=== PATIENT | female | born 1980 | race Caucasian/White ===

== ENCOUNTER 2017-11-15 12:25 | Emergency (ER) | payer OTHER, SELFPAY ==
--- NOTE | 2017-11-15 12:28 | ED_ITS ---
HPI - General Adult <IGNACIO Harvey - Last Filed: 11/15/17 21:48> General Chief complaint: Hypertension Stated complaint: elevated blood pressure Time Seen by Provider: 11/15/17 12:26 Source: patient Mode of arrival: ambulatory Limitations: no limitations History of Present Illness HPI narrative: 37-year-old female here for complaint of for the last several days. She reports that the pain starts at the base of the skull and wraps forward to the top of the scalp. She states that she has a history of migraine headaches but but she states that this is different. She denies any head trauma. She denies any trauma to the neck. She also reports she has had elevated blood pressure over the past few days as well. She denies having a history of hypertension. No chest pain or shortness of breath. She states that her blood pressure has been running right around 140/90. No fevers no chills. No nausea or vomiting. She denies any other concerns or complaints. She denies any stressors relievers of the headache. Related Data Home Medications Medication Instructions Recorded Confirmed Fish Oil 1 cap PO DIRECTED 11/15/17 11/15/17 Previous Rx's Medication Instructions Recorded cyclobenzaprine 10 mg PO TID PRN #15 tab 11/15/17 Allergies Allergy/AdvReac Type Severity Reaction Status Date / Time hydromorphone [From Dilaudid] Allergy Verified 11/15/17 13:05 Sulfa (Sulfonamide Allergy Verified 11/15/17 13:05 Antibiotics) Review of Systems <IGNACIO Harvey - Last Filed: 11/15/17 21:48> Constitutional Denies chills, Denies fever(s), Reports headache(s), Denies lethargy and Denies weakness Eyes Denies change in vision, Denies eye discharge, Denies irritation and Denies loss of vision ENT Ears, Nose, Mouth, and Throat: Denies change in voice, Reports headache(s), Denies neck pain and Denies sore throat Cardiovascular Denies chest pain, Denies irregular heart rhythm, Denies lightheadedness, Denies palpitations, Denies dyspnea, Denies dyspnea on exertion and Denies orthopnea Comments: Elevated blood pressure Respiratory Denies cough, Denies dyspnea, Denies dyspnea on exertion and Denies wheezing Gastrointestinal Gastrointestinal: Denies abdominal pain, Denies change in bowel habits, Denies diarrhea, Denies nausea and Denies vomiting Genitourinary Denies hematuria, Denies flank pain, Denies urinary incontinence and Denies urinary urgency Musculoskeletal Denies neck pain Integumentary/Breasts Denies pruritus, Denies erythema, Denies rash and Denies wounds Neurologic Denies confusion, Reports headache(s), Denies loss of vision and Denies weakness Psychiatric Denies anxiety, Denies confusion, Denies depression, Denies homicidal ideation and Denies suicidal ideation Endocrine Denies palpitations Hematologic/Lymphatic Denies easy bruising Allergic/Immunologic Denies wheezing Exam <IGNACIO Harvey - Last Filed: 11/15/17 21:48> Initial Vital Signs Initial Vital Signs: Vital Signs Temperature 98.7 F 11/15/17 12:38 Pulse Rate 99 H 11/15/17 12:38 Respiratory Rate 20 11/15/17 12:38 Blood Pressure 139/95 H 11/15/17 12:38 Pulse Oximetry 100 11/15/17 12:38 Const General: cooperative and well developed Nutritional Appearance: well nourished Orientation: alert, awake, oriented x3 and not confused HENAK Head: normal to inspection, normocephalic and atraumatic Mouth: oral mucosae normal, oropharynx normal and moist mucous membranes Eyes Conjunctivae: conjunctivae normal Sclera: sclerae normal Pupils: PERRL EOM: EOM intact bilaterally Neck Neck: normal visual inspection, trachea midline, No lymphadenopathy, No midline deformity and No JVD Lymphatic: No lymphedema Chest Chest: normal inspection of the chest Resp Effort & Inspection: normal respiratory effort, able to speak in complete sentences, no respiratory distress and no use of accessory muscles Auscultation: clear to auscultation bilaterally, no rales, no rhonchi and no wheezes Cardio Rate: regular rate Rhythm: regular rhythm Heart Sounds: no click, no gallops, no murmurs and no rubs GI Inspection: non-distended Palpation: soft, no hepatosplenomegaly, No guarding, No pulsatile mass and No tender Auscultation: normal bowel sounds Skin General: no rashes or lesions noted, No jaundice and No petechiae Neuro General: alert, oriented x3, gait normal and no focal motor deficits Speech: speech normal <Rashawn Sierra DO - Last Filed: 11/16/17 10:57> Initial Vital Signs Initial Vital Signs: Vital Signs Temperature 98.7 F 11/15/17 12:38 Pulse Rate 99 H 11/15/17 12:38 Respiratory Rate 20 11/15/17 12:38 Blood Pressure 139/95 H 11/15/17 12:38 Pulse Oximetry 100 11/15/17 12:38 Course <IGNACIO Harvey - Last Filed: 11/15/17 21:48> Orders Ordered: Discontinued Medications Diphenhydramine HCl (Benadryl) 25 mg IV NOW ONE Stop: 11/15/17 12:49 Last Admin: 11/15/17 13:19 Dose: 25 mg Sodium Chloride (Normal Saline 0.9%) 1,000 mls @ 1,000 mls/hr IV BOLUS ONE Stop: 11/15/17 13:47 Last Admin: 11/15/17 13:18 Dose: 1,000 mls/hr Ketorolac Tromethamine (Toradol) 30 mg IV NOW ONE Stop: 11/15/17 12:49 Last Admin: 11/15/17 13:18 Dose: 30 mg Prochlorperazine (Compazine) 10 mg IV NOW ONE Stop: 11/15/17 12:49 Last Admin: 11/15/17 13:18 Dose: 10 mg Vital Signs - 8 hr 11/15/17 14:17 11/15/17 14:27 Pulse Rate 95 H 77 Respiratory Rate 16 14 Blood Pressure 133/77 H Blood Pressure [Right Arm] 133/77 H Pulse Oximetry 100 98 <Rashawn Sierra DO - Last Filed: 11/16/17 10:57> Orders Ordered: Discontinued Medications Diphenhydramine HCl (Benadryl) 25 mg IV NOW ONE Stop: 11/15/17 12:49 Last Admin: 11/15/17 13:19 Dose: 25 mg Sodium Chloride (Normal Saline 0.9%) 1,000 mls @ 1,000 mls/hr IV BOLUS ONE Stop: 11/15/17 13:47 Last Admin: 11/15/17 13:18 Dose: 1,000 mls/hr Ketorolac Tromethamine (Toradol) 30 mg IV NOW ONE Stop: 11/15/17 12:49 Last Admin: 11/15/17 13:18 Dose: 30 mg Prochlorperazine (Compazine) 10 mg IV NOW ONE Stop: 11/15/17 12:49 Last Admin: 11/15/17 13:18 Dose: 10 mg Vital Signs - 8 hr 11/15/17 14:17 11/15/17 14:27 Pulse Rate 95 H 77 Respiratory Rate 16 14 Blood Pressure 133/77 H Blood Pressure [Right Arm] 133/77 H Pulse Oximetry 100 98 Medical Decision Making <Hipolito CoxIGNACIO - Last Filed: 11/15/17 21:48> MDM Narrative Medical decision making narrative: CT of the head was obtained was negative for any acute findings. CBC and Chem panel were obtained and were negative for any acute findings. No signs of organ damage chest x-ray was obtained was negative. EKG shows sinus rhythm with no ST elevation or depression. She was given fluids and migraine cocktail in the emergency room and reports that she has not had much relief from her headache. Urinalysis which was questionable for urinary tract infection. Patient is not having any urinary symptoms at this point. Blood pressure normalized while in the emergency room 127/85. Differential of headache is tension headache. She is prescribed cyclobenzaprine to see if it helps with her attention along with [id number] ibuprofen. Will have patient follow up with primary care provider for further evaluation. She is encouraged to keep a log of her blood pressure readings and bring him to with her to her primary care provider for further evaluation for hypertension. For any worsening symptoms return to the emergency room. Lab Data Result diagrams: 11/15/17 13:15 11/15/17 13:15 Lab Results 11/15/17 11/15/17 11/15/17 Range/Units 13:15 13:15 13:23 WBC 6.2 (4.5-11.0) X10^3/uL RBC 4.38 (4.0-5.2) X10^6/uL Hgb 13.2 (12.0-16.0) g/dL Hct 37.7 (36-46) % MCV 86.0 (80-100) fL MCH 30.0 (26-34) PG MCHC 34.9 (30-36) % RDW 12.6 (11.6-14.8) % Plt Count 339 (150-400) X10^3/uL Neut % (Auto) 61.0 (50-75) % Lymph % (Auto) 28.2 (25-40) % [place] % (Auto) 5.5 (3-14) % Eos % (Auto) 4.6 H (2-4) % Baso % (Auto) 0.7 (0-2) % Neut # (Auto) 3800 (9873-4567) /uL Sodium 142 (137-145) mmol/L Potassium 3.9 (3.4-5.1) mmol/L Chloride 105 (98-107) mmol/L Carbon Dioxide 26 (22-32) mmol/L BUN 17 (7-17) mg/dL Creatinine 0.60 (0.52-1.04) mg/dL Estimated GFR > 60.0 (>60) mL/min BUN/Creatinine Ratio 28.3 H (6-22) Glucose 91 (70-100) mg/dL Calcium 10.0 (8.4-10.2) mg/dL Total Bilirubin 0.5 (0.2-1.3) mg/dL AST 28 (14-36) IU/L ALT 28 (9-52) IU/L Alkaline Phosphatase 51 (38-126) U/L Total Protein 7.4 (6.3-8.2) g/dL Albumin 4.6 (3.5-5.0) g/dL Globulin 2.8 (1.7-4.1) g/dL Albumin/Globulin Ratio 1.6 (1.0-2.8) Urine RBC 1-5/hpf (0-5/HPF) Urine WBC 5-10/hpf H (0-5/HPF) Ur Squamous Epith Cells 10-30 /hpf H Urine Bacteria Few (2-10) H (None) Ur Culture Indicated? Cult not indicated Micro UA Comment Not Reportable Imaging Data CT scan - head: Radiologist's impression: Patient: Cat Spaulding MR#: [id number] : 1980 Acct:[id number] Age/Sex: 37 / F Date of Service: 11/15/17 Loc: ED Accession Number: [id number] Procedure: CT head/brain wo con Ordering Provider: Hipolito Cox PROCEDURE: CT HEAD/BRAIN WO CON INDICATIONS: Atypical headache TECHNIQUE: Noncontrast 4.5 mm thick angled axial sections acquired from the foramen magnum to the vertex, with coronal and sagittal reformats. For radiation dose reduction, the following was used: automated exposure control, adjustment of mA and/or kV according to patient size. COMPARISON: None. FINDINGS: Image quality: Excellent. CSF spaces: Basal cisterns are patent. No extra-axial fluid collections. Ventricles are normal in size and shape. Brain: No midline shift. No intracranial masses or hemorrhage. Munroe-white matter interface is normal. Skull and face: Calvarium and visualized facial bones are intact, without suspicious lesions. Sinuses: Visualized sinuses and mastoids are clear. IMPRESSION: No acute intracranial abnormality can be seen. No masses, mass effect, hydrocephalus, diffuse brain edema, or acute hemorrhage can be seen. Dictated by: Jorge Cristobal M.D. on 11/15/2017 at 12:10 Approved by: Jorge Cristobal M.D. on 11/15/2017 at 12:11 Chest x-ray: Radiologist's impression: Patient: Cat Spaulding MR#: [id number] : 1980 Acct:[id number] Age/Sex: 37 / F Date of Service: 11/15/17 Loc: ED Accession Number: [id number] Procedure: XR chest 1V Ordering Provider: Hipolito Cox PROCEDURE: XR CHEST 1V INDICATIONS: Reports elevated blood pressure TECHNIQUE: One view of the chest was acquired. COMPARISON: None. FINDINGS: Surgical changes and devices: None. Lungs and pleura: No pleural effusions or pneumothorax. Lungs are clear. Mediastinum: Mediastinal contours appear normal. Heart size is normal. Bones and chest wall: No suspicious bony lesions. Overlying soft tissues appear unremarkable. IMPRESSION: No acute process. Dictated by: Basil Tavera M.D. on 11/15/2017 at 13:34 Approved by: Basil Tavera M.D. on 11/15/2017 at 13:35 ECG Data Interpretation: EKG shows normal sinus rhythm with no ST elevation or depression. No ectopy. Ventricular rate of 82. Pr interval of 196. QRS of 93. QT of 347 <Rashawn Sierra DO - Last Filed: 11/16/17 10:57> Lab Data Lab Results 08/15/18 08/15/18 08/15/18 Range/Units 13:15 13:15 13:23 WBC 6.2 (4.5-11.0) X10^3/uL RBC 4.38 (4.0-5.2) X10^6/uL Hgb 13.2 (12.0-16.0) g/dL Hct 37.7 (36-46) % MCV 86.0 (80-100) fL MCH 30.0 (26-34) PG MCHC 34.9 (30-36) % RDW 12.6 (11.6-14.8) % Plt Count 339 (150-400) X10^3/uL Neut % (Auto) 61.0 (50-75) % Lymph % (Auto) 28.2 (25-40) % [place] % (Auto) 5.5 (3-14) % Eos % (Auto) 4.6 H (2-4) % Baso % (Auto) 0.7 (0-2) % Neut # (Auto) 3800 (5558-9594) /uL Sodium 142 (137-145) mmol/L Potassium 3.9 (3.4-5.1) mmol/L Chloride 105 (98-107) mmol/L Carbon Dioxide 26 (22-32) mmol/L BUN 17 (7-17) mg/dL Creatinine 0.60 (0.52-1.04) mg/dL Estimated GFR > 60.0 (>60) mL/min BUN/Creatinine Ratio 28.3 H (6-22) Glucose 91 (70-100) mg/dL Calcium 10.0 (8.4-10.2) mg/dL Total Bilirubin 0.5 (0.2-1.3) mg/dL AST 28 (14-36) IU/L ALT 28 (9-52) IU/L Alkaline Phosphatase 51 (38-126) U/L Total Protein 7.4 (6.3-8.2) g/dL Albumin 4.6 (3.5-5.0) g/dL Globulin 2.8 (1.7-4.1) g/dL Albumin/Globulin Ratio 1.6 (1.0-2.8) Urine RBC 1-5/hpf (0-5/HPF) Urine WBC 5-10/hpf H (0-5/HPF) Ur Squamous Epith Cells 10-30 /hpf H Urine Bacteria Few (2-10) H (None) Ur Culture Indicated? Cult not indicated Micro UA Comment Not Reportable Discharge Plan Departure Patient Disposition: Home Clinical Impression: Headache Discharge Date/Time: 11/15/17 14:30 Interventions: ED Discharge Assessment Last Done: 11/15/17 14:27 Instructions: DI for Headache Activity Restrictions/Additional Instructions: Laboratory results and imaging today were unremarkable. Year prescribed cyclobenzaprine a muscle relaxer as trial to see if it helps with headache In Case is a tension type headache. Use [id number] ibuprofen as needed as well for discomfort. Continue to monitor your blood pressure readings and keep of log to bring with you to primary care provider for further evaluation of hypertension. For any worsening symptoms return emergency room. No driving while taking the muscle relaxer is a can make you drowsy. Prescriptions: New cyclobenzaprine 10 mg tablet 10 mg PO TID PRN (Reason: muscle spasm) Qty: 15 RF: 0 No Action Fish Oil 1 cap PO DIRECTED RF: 0 Referrals: [facility] [Provider Group] <Rashawn Sierra, DO - Last Filed: 11/16/17 10:57> Cosign ED Attending Izaiahature Attestation: I was immediately available in the department for consultation. Documentation has been reviewed. I agree with assessment and plan.
[2017-11-15 12:38] VITALS: BP 139/95; PULSE 99; RESP 20; TEMP 37.1; O2SAT 100
--- NOTE | 2017-11-15 12:51 | DI.CT.S_ITS ---
PROCEDURE: CT HEAD/BRAIN WO CON INDICATIONS: Atypical headache TECHNIQUE: Noncontrast 4.5 mm thick angled axial sections acquired from the foramen magnum to the vertex, with coronal and sagittal reformats. For radiation dose reduction, the following was used: automated exposure control, adjustment of mA and/or kV according to patient size. COMPARISON: None. FINDINGS: Image quality: Excellent. CSF spaces: Basal cisterns are patent. No extra-axial fluid collections. Ventricles are normal in size and shape. Brain: No midline shift. No intracranial masses or hemorrhage. Munroe-white matter interface is normal. Skull and face: Calvarium and visualized facial bones are intact, without suspicious lesions. Sinuses: Visualized sinuses and mastoids are clear. IMPRESSION: No acute intracranial abnormality can be seen. No masses, mass effect, hydrocephalus, diffuse brain edema, or acute hemorrhage can be seen. Dictated by: Jorge Cristobal M.D. on 11/15/2017 at 12:10 Approved by: Jorge Cristobal M.D. on 11/15/2017 at 12:11
--- NOTE | 2017-11-15 12:54 | DI.RAD.S_ITS ---
PROCEDURE: XR CHEST 1V INDICATIONS: Reports elevated blood pressure TECHNIQUE: One view of the chest was acquired. COMPARISON: None. FINDINGS: Surgical changes and devices: None. Lungs and pleura: No pleural effusions or pneumothorax. Lungs are clear. Mediastinum: Mediastinal contours appear normal. Heart size is normal. Bones and chest wall: No suspicious bony lesions. Overlying soft tissues appear unremarkable. IMPRESSION: No acute process. Dictated by: Basil Tavera M.D. on 11/15/2017 at 13:34 Approved by: Basil Tavera M.D. on 11/15/2017 at 13:35
--- NOTE | 2017-11-15 12:59 | PC.NURSE ---
Pt reports on a Monday started having pressure behind her eyes and feeling her pulse behind her eyes. Reports blood pressure increased to 130s systolically and 90s diastolically. reports bp normally lower. Has taken naproxen for pain without improvement. Reports this isn't like her normal migraines. Continues to feel pulse behind her eyes.
[2017-11-15] MEDS: SODIUM CHLORIDE 0.9% 1,000 ML 1000 ML IV (13:18)
[2017-11-15] MEDS: KETOROLAC 60 MG/2 ML VIAL 30 MG IV (13:18)
[2017-11-15] MEDS: PROCHLORPERAZINE 10 MG/2 ML VIAL IV (13:18)
[2017-11-15] MEDS: diphenhydrAMINE 50 MG/ML VIAL 25 MG IV (13:19)
[2017-11-15 13:23] LABS: Add Manual Diff / Slide Review NO; Basophils Percent Auto 0.7 % (0-2); Eosinophils Percent Auto 4.6 % (2-4); Hematocrit 37.7 % (36-46); Hemoglobin 13.2 g/dL (12.0-16.0); Lymphocytes Percent Auto 28.2 % (25-40); Mean Corpuscular HGB Conc 34.9 % (30-36); Monocytes Percent Auto 5.5 % (3-14); Neutrophils Absolute Auto 3800 /uL (3000-5900); Platelet Count 339 X10^3/uL (150-400); Red Blood Cell Count 4.38 X10^6/uL (4.0-5.2); Red Cell Distribution Width 12.6 % (11.6-14.8); White Blood Cell Count 6.2 X10^3/uL (4.5-11.0)
[2017-11-15 13:31] VITALS: BP 127/85; PULSE 91; RESP 16; O2SAT 100
[2017-11-15 13:36] LABS: HEMOLYSIS < 15 (0-50); Sodium 142 mmol/L (137-145)
[2017-11-15 13:37] LABS: Alanine Aminotransferase 28 IU/L (9-52); Albumin 4.6 g/dL (3.5-5.0); Albumin Globulin Ratio 1.6 (1.0-2.8); Alkaline Phosphatase 51 U/L (38-126); Aspartate Aminotransferase 28 IU/L (14-36); BUN Creatinine Ratio 28.3 (6-22); Bilirubin Total 0.5 mg/dL (0.2-1.3); Blood Urea Nitrogen 17 mg/dL (7-17); Carbon Dioxide 26 mmol/L (22-32); Chloride 105 mmol/L (98-107); Estimated Glomerular Filt Rate > 60.0 mL/min (>60); Globulin 2.8 g/dL (1.7-4.1); Glucose 91 mg/dL (70-100); Potassium 3.9 mmol/L (3.4-5.1); Total Protein 7.4 g/dL (6.3-8.2)
[2017-11-15 13:52] LABS: RBC Urine 1-5/HPF (0-5/HPF); Squamous Epithelial Cell Urine 10-30 /HPF; WBC Urine 5-10/HPF (0-5/HPF)
[2017-11-15 13:53] LABS: Bacteria Urine Few (2-10); Culture Indicated Urine Cult Not Indicated
[2017-11-15 14:17] VITALS: BP 133/77; PULSE 95; RESP 16; O2SAT 100
[2017-11-15 14:27] VITALS: BP 133/77; PULSE 77; RESP 14; O2SAT 98
== END 2017-11-15 14:30 | disposition home or self-care (01) ==
PROVIDERS: Emergency Provider Nurse Practitioner Family
DX: R51 Headache (principal)
CPT/HCPCS: 36591; 70450; 71045; 80053; 81003; 81015; 81025; 85025; 93005; 93010; 96361; 96374; 96375; 99282; 99285; J0780; J1200; J1885